=== PATIENT | male | born 1995 | race Caucasian/White ===

== ENCOUNTER 2018-08-29 19:13 | Emergency (ER) | payer OTHER ==
[~2018-08-29] VITALS: Ht 165.1 cm; Wt 74.8 kg
[2018-08-29 19:14] VITALS: Ht 165.1 cm; Wt 74.8 kg
[2018-08-29 22:10] VITALS: BP 133/71
== END 2018-08-29 22:10 | disposition home or self-care (01) ==
LOC: ED 19:13
DX: S81.811A Laceration without foreign body, right lower leg, initial encounter (principal); R03.0 Elevated blood-pressure reading, without diagnosis of hypertension; W26.8XXA Contact with other sharp object(s), not elsewhere classified, initial encounter; Y93.89 Activity, other specified; Y92.89 Other specified places as the place of occurrence of the external cause; Y99.8 Other external cause status
CPT/HCPCS: 90715; J2001